=== PATIENT | male | born 1955 | race Caucasian/White ===

== ENCOUNTER → 2019-02-05 | Outpatient (CLI) | payer MEDICARE, OTHER ==
--- NOTE | 2019-02-05 12:03 | Diagnostic Imaging Report ---
INDICATION: Cirrhosis and cardiomyopathy. No prior studies are available for comparison. The liver is enlarged at 21.5 cm. No discrete liver mass is detected. Portal vein does show some pulsatility but does appear to be patent and shows normal direction of flow. Gallbladder is without stones or sludge. There is borderline wall thickening at 3 mm which can be seen with hepatic dysfunction. Extra hepatic bile duct was obscured. No intrahepatic ductal dilatation is seen. Pancreas was obscured. The spleen is normal in size 13.1 cm. Aorta is non-aneurysmal. IVC is patent. The kidneys are without calculi or hydronephrosis. There is a 3.2 cm cyst involving the left kidney. There is ascites present. IMPRESSION: 1. Hepatomegaly. No discrete liver mass is detected. 2. Left renal cyst. 3. Ascites. Dictated by: Dictated on workstation # [id number]
== END ==
LOC: CARD 07:28
PROVIDERS: ATTEND Pediatrics
DX: N28.1 Cyst of kidney, acquired (principal); R18.8 Other ascites; R16.0 Hepatomegaly, not elsewhere classified; I42.6 Alcoholic cardiomyopathy; K70.31 Alcoholic cirrhosis of liver with ascites
CPT/HCPCS: 76700; 93306

== ENCOUNTER → 2019-03-02 | Outpatient (CLI) | payer MEDICARE, OTHER ==
[2019-03-02 09:50] LABS: CARBON DIOXIDE 26 MMOL/L (21-32); CHLORIDE 103 MMOL/L (98-107); POTASSIUM 4.2 MMOL/L (3.6-5.0); SODIUM 140 MMOL/L (135-145)
[2019-03-02 09:51] LABS: BUN/CREATININE RATIO 15; CREATININE SERUM 1.15 MG/DL (0.60-1.30); GFR ESTIMATED > 60; GLUCOSE 93 MG/DL (70-105)
== END ==
LOC: LAB FS 09:03
PROVIDERS: ATTEND Pediatrics
DX: K70.31 Alcoholic cirrhosis of liver with ascites (principal)
CPT/HCPCS: 36415; 80048

== ENCOUNTER 2020-08-06 16:08 | Emergency (ER) | payer MEDICARE, OTHER ==
[~2020-08-06] VITALS: Ht 177.8 cm; Wt 97.5 kg
--- NOTE | 2020-08-06 16:17 | ED General ---
General Stated Complaint: SYNCOPAL EPISODE History of Present Illness Date Seen by Provider: Aug 06, 2020 Time Seen by Provider: 16:13 Initial Comments 65-year-old male presents via EMS with a near syncopal event while on the toilet. Patient states that he has not been feeling well for the past 4 days, feeling weak and tired. Denies fever chills, denies cough or shortness of air, denies chest pain. Denies abdominal pain, nausea or vomiting. States his appetite's been okay. He states I just feel weak. Patient feeling better on arrival to ER, but still feeling weak Allergies and Home Medications Allergies Coded Allergies: No Known Drug Allergies (Unverified , 08/06/20) Patient Home Medication List Home Medication List Reviewed: Yes Review of Systems Review of Systems Constitutional: No chills; diaphoresis (while on toilet); No dizziness, No fever; malaise, weakness EENTM: no symptoms reported Respiratory: no symptoms reported; No cough, No short of breath Cardiovascular: No chest pain, No edema, No palpitations, No syncope Gastrointestinal: No abdominal pain, No constipation, No diarrhea, No loss of appetite, No nausea, No vomiting Musculoskeletal: No back pain, No neck pain Skin: No change in color, No lesions, No rash Psychiatric/Neurological: Denies Headache, Denies Paresthesia, Denies Seizure; Weakness Past [id number]-[id number]-Ydarqy Hx Past Med/Social Hx: Reviewed Nursing Past Med/Soc Hx Physical Exam Vital Signs Vital Signs - First Documented 08/06/20 16:27 Temp 36.3 Pulse 107 Resp 33 B/P (MAP) 103/65 (78) Pulse Ox 96 O2 Delivery Room Air Capillary Refill : Height, Weight, BMI Height: '" Weight: lbs. oz. kg; BMI Method: General Appearance: No Apparent Distress, WD/WN HEENT: PERRL/EOMI, Normal ENT Inspection Neck: Normal Inspection, Non Tender Respiratory: Chest Non Tender, Lungs Clear, Normal Breath Sounds, No Accessory Muscle Use, No Respiratory Distress Cardiovascular: Regular Rate, Rhythm, No Edema, No Gallop, No JVD, Normal Peripheral Pulses Gastrointestinal: Normal Bowel Sounds, Non Tender, Soft Back: Normal Inspection, No CVA Tenderness Extremity: Normal Capillary Refill, Non Tender Neurologic/Psychiatric: Alert, Oriented x3, No Motor/Sensory Deficits, Normal Mood/Affect Skin: Normal Color, Warm/Dry Focused Exam Lactate Level 08/06/20 16:18: Lactic Acid Level 3.15*H Lactic Acid Level Laboratory Tests Test 08/06/20 16:18 Lactic Acid Level 3.15 MMOL/L (0.50-2.00) *H Progress/Results/Core Measures Suspected Sepsis SIRS Temperature: Pulse: Respiratory Rate: Laboratory Tests 08/06/20 16:18: White Blood Count 16.1H Blood Pressure / Mean: 08/06/20 16:18: Lactic Acid Level 3.15*H Laboratory Tests 08/06/20 16:18: Creatinine 1.54H, Platelet Count 104L, Total Bilirubin 2.2H Results/Orders Lab Results Laboratory Tests Test 08/06/20 16:18 Range/Units White Blood Count 16.1 H 4.3-11.0 10^3/uL Red Blood Count 4.45 4.35-5.85 10^6/uL Hemoglobin 13.7 13.3-17.7 G/DL Hematocrit 40 40-54 % Mean Corpuscular Volume 90 80-99 FL Mean Corpuscular Hemoglobin 31 25-34 PG Mean Corpuscular Hemoglobin Concent 34 32-36 G/DL Red Cell Distribution Width 14.5 10.0-14.5 % Platelet Count 104 L 130-400 10^3/uL Mean Platelet Volume 11.0 H 7.4-10.4 FL Immature Granulocyte % (Auto) 1 % Neutrophils (%) (Auto) 92 H 42-75 % Lymphocytes (%) (Auto) 3 L 12-44 % Monocytes (%) (Auto) 4 0-12 % Eosinophils (%) (Auto) 0 0-10 % Basophils (%) (Auto) 0 0-10 % Neutrophils # (Auto) 14.8 H 1.8-7.8 X 10^3 Lymphocytes # (Auto) 0.5 L 1.0-4.0 X 10^3 Monocytes # (Auto) 0.7 0.0-1.0 X 10^3 Eosinophils # (Auto) 0.0 0.0-0.3 10^3/uL Basophils # (Auto) 0.0 0.0-0.1 10^3/uL Immature Granulocyte # (Auto) 0.2 H 0.0-0.1 10^3/uL Neutrophils % (Manual) 73 % Lymphocytes % (Manual) 2 % Monocytes % (Manual) 3 % Band Neutrophils 20 % Atypical Lymphocytes 2 % Blood Morphology Comment NORMAL Sodium Level 126 L 135-145 MMOL/L Potassium Level 3.9 3.6-5.0 MMOL/L Chloride Level 95 L 98-107 MMOL/L Carbon Dioxide Level 16 L 21-32 MMOL/L Anion Gap 15 H 5-14 MMOL/L Blood Urea Nitrogen 36 H 7-18 MG/DL Creatinine 1.54 H 0.60-1.30 MG/DL Estimat Glomerular Filtration Rate 45 BUN/Creatinine Ratio 23 Glucose Level 122 H 70-105 MG/DL Lactic Acid Level 3.15 *H 0.50-2.00 MMOL/L Calcium Level 8.5 8.5-10.1 MG/DL Corrected Calcium 8.6 8.5-10.1 MG/DL Magnesium Level 1.9 1.6-2.4 MG/DL Total Bilirubin 2.2 H 0.1-1.0 MG/DL Aspartate Amino Transf (AST/SGOT) 42 H 5-34 U/L Alanine Aminotransferase (ALT/SGPT) 24 0-55 U/L Alkaline Phosphatase 77 40-136 U/L Troponin I < 0.30 <0.30 NG/ML Pro-B-Type Natriuretic Peptide 21331.0 H <75.0 PG/ML Total Protein 6.8 6.4-8.2 GM/DL Albumin 3.9 3.2-4.5 GM/DL My Orders Orders - ROVENSTINE,OMKAR L DO Ed Iv/Invasive Line Start (08/06/20 16:14) Cbc With Automated Diff (08/06/20 16:14) Comprehensive Metabolic Panel (08/06/20 16:14) Lactic Acid Analyzer (08/06/20 16:14) Magnesium (08/06/20 16:14) Troponin I Fs (08/06/20 16:14) Urinalysis (08/06/20 16:14) Ekg Tracing (08/06/20 16:14) Chest Pa/Lat (2 View) (08/06/20 16:14) Manual Differential (08/06/20 16:18) Blood Culture (08/06/20 16:43) Ns Iv 1000 Ml (Sodium Chloride 0.9%) (08/06/20 16:45) Probnp Fs (08/06/20 16:43) Vital Signs/I&O 08/06/20 16:27 Temp 36.3 Pulse 107 Resp 33 B/P (MAP) 103/65 (78) Pulse Ox 96 O2 Delivery Room Air Capillary Refill : ECG Initial ECG Impression Date: Aug 06, 2020 Initial ECG Impression Time: 16:20 Initial ECG Rate: 107 Initial ECG Rhythm: S.Tach Initial ECG Comparisson: No Previous ECG Available Comment sinus tach @ 107, no ST or acute ischemic changes. Iferior q waves. Diagnostic Imaging Diagonstic Imaging: Xray Plain Films/CT/US/NM/MRI: chest Comments FINDINGS: There is mild cardiomegaly with mild central vascular congestion. The left-sided pacemaker lead is in expected position. No pleural effusion or pneumothorax is seen. IMPRESSION: 1. Mild cardiomegaly and central vascular congestion. Dictated on workstation # [id number] Dict: 08/06/20 1641 Trans: 08/06/20 1644 [id number] [id number] Interpreted by: ISAAC ROSAS MD Electronically signed by: Departure Communication (Admissions) Time/Spoke to Admitting Phy: 17:00 per family request - going to [facility]. called Dr Casillas who accepts @ 1700 Impression Primary Impression: Dehydration Additional Impressions: Renal insufficiency Hyponatremia CHF (congestive heart failure) Qualified Codes: I50.9 - Heart failure, unspecified Disposition: XFER SHT-TRM HOSP Condition: Improved Admissions Decision to Admit Reason: Admit from ER (General) Decision to Admit/Date: Aug 06, 2020 Time/Decision to Admit Time: 17:00 Transfer Transfer Reason: Patient preference Time Spoke to Accepting Phy: 17:00 Transfer Facility: [facility] Method of Transfer: EMS Departure-Patient Inst. Referrals: KAREN CASILLAS MD (PCP/Family) Primary Care Physician OMKAR HOLLIDAY DO Aug 06, 2020 16:17
[2020-08-06 16:32] LABS: BASOPHILS % (AUTO) 0 % (0-10); EOSINOPHILS % (AUTO) 0 % (0-10); HEMATOCRIT 40 % (40-54); HEMOGLOBIN 13.7 G/DL (13.3-17.7); LYMPHOCYTES % (AUTO) 3 % (12-44); MEAN CORPUSCULAR HEMOGLOBIN 31 PG (25-34); MEAN CORPUSCULAR HGB CONC 34 G/DL (32-36); MEAN CORPUSCULAR VOLUME 90 FL (80-99); MONOCYTES % (AUTO) 4 % (0-12); NEUTROPHILS % (AUTO) 92 % (42-75); PLATELET COUNT 104 10^3/uL (130-400); WHITE BLOOD COUNT 16.1 10^3/uL (4.3-11.0)
[2020-08-06 16:33] LABS: LYMPHOCYTES # (AUTO) 0.5 X 10^3 (1.0-4.0); MONOCYTES # (AUTO) 0.7 X 10^3 (0.0-1.0); NEUTROPHILS # (AUTO) 14.8 X 10^3 (1.8-7.8)
[2020-08-06 16:44] LABS: ATYPICAL LYMPHOCYTES 2 %; BAND NEUTROPHILS 20 %; LYMPHOCYTES % (MANUAL) 2 %; MONOCYTES % (MANUAL) 3 %; NEUTROPHILS % (MANUAL) 73 %; RBC MORPH NORMAL
--- NOTE | 2020-08-06 16:44 | Diagnostic Imaging Report ---
HISTORY: Weakness. Syncopal episode. COMPARISON: None. TECHNIQUE: Two views of the chest. FINDINGS: There is mild cardiomegaly with mild central vascular congestion. The left-sided pacemaker lead is in expected position. No pleural effusion or pneumothorax is seen. IMPRESSION: 1. Mild cardiomegaly and central vascular congestion. Dictated by: Dictated on workstation # [id number]
[2020-08-06] MEDS ORDERED: NS IV 1000 ML 1,000 ML IV SCH (16:45)
[2020-08-06 16:46] LABS: BILIRUBIN,TOTAL 2.2 MG/DL (0.1-1.0); BUN/CREATININE RATIO 23; CALCIUM 8.5 MG/DL (8.5-10.1); CARBON DIOXIDE 16 MMOL/L (21-32); CHLORIDE 95 MMOL/L (98-107); CREATININE SERUM 1.54 MG/DL (0.60-1.30); GFR ESTIMATED 45; GLUCOSE 122 MG/DL (70-105); MAGNESIUM 1.9 MG/DL (1.6-2.4); POTASSIUM 3.9 MMOL/L (3.6-5.0)
[2020-08-06 16:47] LABS: ALANINE AMINOTRANSFERASE 24 U/L (0-55); ALBUMIN 3.9 GM/DL (3.2-4.5); ALKALINE PHOSPHATASE 77 U/L (40-136); SODIUM 126 MMOL/L (135-145); TOTAL PROTEIN 6.8 GM/DL (6.4-8.2)
[2020-08-06 18:11] VITALS: BP 95/60
== END 2020-08-06 18:25 | disposition short-term general hospital (02) ==
LOC: EDUNIT# 16:08 → ER FS 16:10
DX: E86.0 Dehydration (principal); N28.9 Disorder of kidney and ureter, unspecified; E87.1 Hypo-osmolality and hyponatremia; I50.9 Heart failure, unspecified
CPT/HCPCS: 36415; 71046; 80053; 83605; 83735; 83880; 84484; 85007; 85027; 87040; 93005